=== PATIENT | male | born 1950 | race Caucasian/White ===

== ENCOUNTER → 2020-08-07 | Day surgery (SDC) | payer MEDICARE, OTHER ==
[~2020-08-07] MED LIST: BUPIVACAINE HCL 0.5 % INJ/PF 30 ML SDV ONE; LIDOCAINE 1% INJ-PF (10 MG/ML) 30 ML SDV ONE
--- NOTE | 2020-08-07 08:40 | Operative Report ---
PROCEDURE: 1. Left articular branch of femoral nerve radiofrequency denervation 2. Left articular branch of obturator nerve radiofrequency denervation Preoperative Diagnosis: Left osteoarthritis Hip Postoperative Diagnosis: Left osteoarthritis Hip DATE OF PROCEDURE: August 07, 2020 ANESTHESIA: Local anesthesia COMPLICATIONS: none reported PROCEDURE IN DETAIL: Hx/PE/meds/allergies/applicable labs reviewed. No changes and no contraindications were found. Full description of the procedure was provided including benefits as well as possible complications including transient in creased pain, stomach irritation, mood alteration, transient weakness or parathesias as well as more serious nerve injury, bleeding, infection or allergic reaction. Informed consent was obtained and documented. The patient was brought to the procedure room and placed on the exam table in a comfortable supine position. The place for the needle placement was obtained by manual palpation with radiographic confirmation. The sterile field was prepared and sterile drapes. Local anesthesia superficial and deep was provided by local infiltration of 6 ml 1 % lidocaine. Using fluoroscopic guidance a 17g 150 mm radiofrequency needle with 4mm active tip was advanced to the anteromedial aspect of the extraarticular portion of the hip joint where the articular branch of the femoral nerve traverses until a bony endpoint is felt. Attempted aspiration yielded no blood. Motor testing was then performed with 2hz at 2 volts and no lower extremity motor stimulation was observed. 2 cc of .5 % marcaine was injected through the RF needle. A radiofrequency lesion of the articular branch of the femoral nerve was then performed at 80 degrees C for 2 min and 30 seconds. The needle was then withdrawn. A second needle was placed and using fluoroscopic confirmation with ULTRASOUND guidance the needle was advanced to the incisura of the acetabulum where the articular branch of the obturator nerve traverses until a bony endpoint was met. Attempted aspiration yielded no blood. Radiographs were made. Motor testing was then performed with 2hz at 2 volts and no lower extremity motor stimulation was observed. 2cc .5 % marcaine was injected through the RF needle. A radiofrequency lesion of the articular branch of the obturator nerve was then performed at 80 degrees C for 2 minutes and 30 seconds. The needle was then withdrawn. The patient tolerated the procedure well. After observation the patient was discharged with instructions and follow up. They were also provided contact information to call regarding any concerning symptoms or questions. IMPRESSION: 1. Successful radiofrequency ablations of the left articular branches of the obturator and femoral nerves was performed. 2. Follow up in 1-2 weeks to assess the efficacy of the procedure. 3. Estimated Blood Loss: 0 4. Disposition: home
== END ==
LOC: RAD 07:59
PROVIDERS: ATTEND Family Medicine
DX: M25.552 Pain in left hip (principal); M17.12 Unilateral primary osteoarthritis, left knee
CPT/HCPCS: 64640 ×2; J3490 ×2